=== PATIENT | male | born 1965 | race Caucasian/White ===

== ENCOUNTER 2018-01-25 19:20 | Emergency (ER) | payer OTHER, SELFPAY ==
[2018-01-25 19:20] VITALS: BP 179/99; PULSE 64; RESP 18; TEMP 36.9; O2SAT 99; BMI 28.3
--- NOTE | 2018-01-25 19:54 | ED.DEP ---
ED Disposition - Plan for ED Patient: Chief Complaint: Dental Instructions: ED Tooth Pain Prescriptions: Clindamycin [Cleocin] 300 mg PO 4X/DAY #80 capsule Referrals: Shahriar Carranza MD [Primary Care Provider] -
--- NOTE | 2018-01-25 19:57 | ED.VISSUMM ---
- ER Visit Summary Date of Service: 01/25/18 Chief Complaint: Toothache History of Present Illness: The patient is a 52 M presenting with toothache. He states this has been ongoing for the past week. He saw his dentist on Friday. He was started on amoxicillin at that time. He states the pain and swelling have not improved. He has one more day of antibiotic. He denies fever or other complaints. Physical Examination: Vitals are stable. Patient is afebrile. Alert no acute distress. HEENT exam right lower molar tenderness with no surrounding fluctuance. No sublingual edema Neck is supple. Lungs are clear and equal bilaterally. Heart is regular rate and rhythm. Extremities are unremarkable. Skin is warm and dry. Remainder of exam is unremarkable. Emergency Department Course and Treatment: Patient was given clindamycin. Advised follow-up with his dentist. He is given [place] in the emergency department. Advised to return to ED for any worsening complaints. Disposition: Discharge home Impression: Odontalgia This note was generated with [employer] dictation software. It may contain incorrect words, spelling, and punctuation that were not noted in review of the chart prior to signing ED Disposition - Plan for ED Patient: Chief Complaint: Dental Instructions: ED Tooth Pain Prescriptions: Clindamycin [Cleocin] 300 mg PO 4X/DAY #80 capsule Referrals: Shahriar Carranza MD [Primary Care Provider] -
[2018-01-25] MEDS: Clindamycin HCl 150 MG Capsule 300 MG PO (20:09)
[2018-01-25] MEDS: HYDROcodone Bitartrate/Apap 5/325 Tablet PO (20:10)
[2018-01-25 20:13] VITALS: PULSE 72; RESP 16
== END 2018-01-25 20:14 | disposition home or self-care (01) ==
LOC: ED 19:55
PROVIDERS: Emergency Provider Emergency Medicine; Family Provider Family Medicine; PCP Family Medicine
DX: K08.89 Other specified disorders of teeth and supporting structures (principal); Z79.2 Long term (current) use of antibiotics
CPT/HCPCS: 99283

== ENCOUNTER 2023-01-08 08:30 | Outpatient (RCR) | payer OTHER, SELFPAY ==
--- NOTE | 2022-10-07 17:02 | HP.PTEVAL ---
Patient's Visit Information SHIREEN SMALLWOOD is a 57 year old M referred to Physical Therapy by Dr. Shahriar Carranza MD with a diagnosis of R shoulder pain. Date of Evaluation: 10/07/22 Physical Therapist: Thad Snider PT, ATC - Visit Plan Frequency: 2-3x /Week Duration: 3 Weeks Plan: R shoulder strengthening with focus on rotator cuff and scapular stabilizers - Subjective Pt reports he has had R shoulder pain for approximately one year. Pt notes the pain had an insidious onset in nature. Pt reports Pt is R hand dominant. Pt reports he has generalized pain that moves from the front to the back of the shoulder. Pt notes his pain is dull most of the time. but notes his pain can become burning at times. Pt notes he has a tendency to sleep with his arms above his head, which will result in severe pain of the R shoulder. Pt reports sleep difficulty at this time secondary to R shoulder pain. Pt denies tingling or numbness at this time. Pt reports he likes to play golf and feels like he would not be able to do that motion at this time. Pt reports 0/10 pain at rest, 3/10 pain at worst (when he moves his shoulder the wrong way) - Pain R shoulder pain Pain Intensity (Out of 10): 0 Pain Intensity Range: 3 - Objective Neuro: B UE sensation is WNL to light touch. B bicipital reflex= 2/3. Palpation: No point tenderness with palpation. No obvious deformity noted at this time. ROM: L shoulder flex= 170, abd= 170, IR= WNL, ER= 60; R shoulder flex= 170, abd= 170, IR= WNL, ER= 65 degrees. MMT: L shoulder flex= 24, abd= 32, IR= 30,ER= 30 #F; R shoulder flex= 7, abd= 32, IR= 30, ER= 13 #F. Special testing: Pos empty can test, pos speeds, pos HK - Balance/Special Test Scores Quick DASH Score: 18.1800 - Goals Goal 1:: Decrease R shoulder pain x 50% to aid with sleep Goal Time Frame: 2-4 Weeks Goal 2:: Increase R shoulder strength to equal 95% of L shoulder pain throughout to aid with return to golf without limitation Goal Time Frame: 2-4 Weeks Goal 3:: I with HEP Goal Time Frame: 2-4 Weeks - Rehabilitation Potential Physical Therapy Diagnosis: Pt has R shoulder pain and weakness secondary to R shoulder impingement Rehabilitation Potential: Good - Anticipated Interventions Patient/Client Instruction: Educate patient on: Condition, Plan of Care For the Purpose of:: To improve self management Therapeutic Exercise to Include: Strength training, Endurance training, Active ROM, Scapular Strength/Stabilization For the Purpose of:: To decrease pain, To improve muscle performance and motor function Cryotherapy (ice pack, ice massage): Yes For the Purpose of:: To decrease pain Thank you for the opportunity to evaluate your patient. For Medicare and Medicare HMO plans, please review the plan of care and approve it. It will need to be FAXED BACK to us at [phone] for Medicare purposes. For Medicare only, by signing this I certify the plan of care. Please let me know if there are questions or concerns regarding this plan of care. Physician Signature: Date:
--- NOTE | 2022-12-04 08:05 | HP.PTREVAL ---
Re-Evaluation Intro: Dr. Shahriar Carranza MD, It has been my pleasure to treat SHIREEN SMALLWOOD over the last 15 visits for R shoulder pain. Please see the progress note below for an update on the physical therapy plan of care! Subjective Subjective: Pt reports no pain at rest, he is still limited with IADL's Objective Objective/Function: R shoulder pain ranges from 0-3/10 R shoulder MMT: flex= 8, abd= 29, ER= 14, IR= 27 #F R shoulder ROM: flex= 170, abd= 170, ER= 65 degrees Plan Plan Plan: R shoulder strengthening with focus on rotator cuff and scapular stabilizers Balance/Gait/Functional tests Balance/Special Test Scores Quick DASH Score: 22.7250 Goals Goals Goal 1:: Decrease R shoulder pain x 50% to aid with sleep Goal Time Frame: 2-4 Weeks Goal Progress: Progressing Goal 2:: Increase R shoulder strength to equal 95% of L shoulder pain throughout to aid with return to golf without limitation Goal Time Frame: 2-4 Weeks Goal Progress: Progressing Goal 3:: I with HEP Goal Time Frame: 2-4 Weeks Goal Progress: Progressing Anticipated Interventions Anticipated Interventions Patient/Client Instruction: Educate patient on: Condition and Plan of Care For the Purpose of:: To improve self management Therapeutic Exercise to Include: Strength training, Endurance training, Active ROM and Scapular Strength/Stabilization For the Purpose of:: To decrease pain and To improve muscle performance and motor function Cryotherapy (ice pack, ice massage): Yes For the Purpose of:: To decrease pain Re-Evaluation Ending Re-evaluation ending: Please do not hesitate to contact me at [phone] by phone or if you have questions or concerns regarding this new plan of care! Sincerely, Thad Snider, PT, ATC
--- NOTE | 2023-01-08 09:04 | HP.PTDCSUM ---
Discharge Summary D/C summary: It has been my pleasure to treat SHIREEN SMALLWOOD referred by Dr. Shahriar Carranza MD, with the diagnosis of R shoulder pain for a total of 23 visit(s). Discharge Date: Please see the following information for a summary of their discharge status. Subjective Subjective: I am ready for discharge Pain R shoulder pain: Pain Intensity (Out of 10): 0 Overall Improvement % Improvement: 80 Objective Objective/Function: R shoulder pain ranges from 0-2/10 R shoulder ROM: WNL when compared bilaterally R shoulder MMT: flex= 16, abd= 37, ER= 20, IR= 32 #F Pt is I with HEP Goals Goal 1:: Decrease R shoulder pain x 50% to aid with sleep Goal Progress: Goal Met Goal 2:: Increase R shoulder strength to equal 95% of L shoulder pain throughout to aid with return to golf without limitation Goal Progress: Progressing Goal 3:: I with HEP Goal Progress: Goal Met Plan Plan: Discontinue to HEP D/C Information d/c sentence: If there are questions or concerns regarding this patient's physical therapy, please feel free to call me at [phone]. Thank you for the referral of this patient. Sincerely, Thad Snider, PT, ATC Balance/Gait/Functional tests Balance/Special Test Scores Quick DASH Score: 2.2725
== END 2023-01-08 19:00 | disposition home or self-care (01) ==
LOC: PT 08:30
PROVIDERS: PCP Family Medicine; Referring Provider Family Medicine; Visit Provider Family Medicine
DX: M25.511 Pain in right shoulder (principal)
CPT/HCPCS: 97110; 97161; 97164